=== PATIENT | female | born 1965 | race African-American/Black ===

== ENCOUNTER 2016-06-24 11:24 | Emergency (ER) | payer MEDICAID ==
[2016-06-24 12:01] VITALS: BP 125/69
[2016-06-24] MEDS ORDERED: Ondansetron 4 MG Tab.DIS PO ONE (12:09)
[2016-06-24] MEDS ORDERED: Ketorolac 60 MG/2 ML SDV IM ONE (13:40)
--- NOTE | 2016-06-24 14:31 | EDM.PDOC ---
ED HPI GI/ABDOMINAL - General Chief Complaint: Abdominal Pain Stated Complaint: ABDOMINAL PAIN Time Seen by Provider: 06/24/16 11:59 Source of Information: Reports: Patient, RN notes reviewed - History of Present Illness INITIAL COMMENTS - FREE TEXT/NARRATIVE: 51 year old female with nausea, intermitant abd pain and cramping for 2 days. Pain is generalized. no vomiting, diarrhea, fever or chills. Eating makes the pain worse. No prior abd surguries. - Related Data Allergies/ADRs: Allergies Allergy/AdvReac Type Severity Reaction Status Date / Time cephalexin monohydrate Allergy Hives Verified 06/24/16 11:56 [From Keflex] Home Meds: Home Meds Albuterol Sulfate [Proventil Hfa] 2 puff INH DAILY 04/08/16 [History] Azithromycin [IJD: Azithromycin] 250 mg PO DAILY #6 tab 04/08/16 [Rx] Furosemide 20 mg PO DAILY 04/08/16 [History] Hydrocodone/Acetaminophen [Hydrocodon-Acetaminophen 5-325] 1 tab PO Q6H PRN 12/15 [History] Omeprazole 20 mg PO BID 04/08/16 [History] Tolterodine [Detrol LA 24 Hr] 2 mg PO BID 04/08/16 [History] oxyCODONE HCl/Acetaminophen [Percocet 5-325 mg Tablet] 1 - 2 each PO Q4H PRN # 20 tablet 04/21/16 [Rx] Ondansetron [Zofran ODT] 4 mg PO Q6H #10 tab.dis 06/24/16 [Rx] Past Medical History HEENT History: Reports: Impaired vision Cardiovascular History: Reports: Arrhythmia Other Cardiovascular History: irregular HR Respiratory History: Reports: Asthma, Bronchitis, recurrent Gastrointestinal History: Reports: Hemorrhoids 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: Neurological History: Reports: Migraines Psychiatric History: Reports: Anxiety, Depression - Past Surgical History HEENT Surgical History: Reports: Adenoidectomy, Oral surgery Other HEENT Surgeries/Procedures: saliva gland removed Female Surgical History: Reports: section Other Musculoskeletal Surgeries/Procedures:: Jaw surgery Social & Family History - Tobacco Use Smoking Status *Q: Never Smoker Second Hand Smoke Exposure: No - Caffeine Use Caffeine Use: Reports: Coffee, Energy drinks, Tea - Recreational Drug Use Recreational Drug Use: No - Living Situation & Occupation Occupation: employed ED ROS GENERAL - Review of Systems Review Of Systems: See Below Constitutional: Denies: fever, chills, diaphoresis HEENT: Reports: No symptoms Respiratory: Denies: Shortness of Breath Cardiovascular: Denies: Chest pain GI/Abdominal: Reports: Abdominal pain, Nausea. Denies: Constipation, Diarrhea, Hematochezia, Melena, Vomiting Musculoskeletal: Denies: back pain Skin: Reports: no symptoms Neurological: Reports: No Symptoms ED EXAM, GI/ABD - Physical Exam Exam: See Below General Appearance: alert, mild distress Throat/Mouth: Normal inspection, Normal oropharynx Head: No: facial swelling Neck: supple, full range of motion Respiratory/Chest: lungs clear, normal breath sounds Cardiovascular: regular rate, rhythm GI/Abdominal: soft, tenderness (mild diffuse tenderness) Back Exam: No: CVA tenderness (L), CVA tenderness (R) Extremities: normal inspection, normal range of motion Neurological: alert, oriented, no motor/sensory deficits Skin Exam: Warm, Dry, Normal color Course - Vital Signs Last Recorded V/S: Last Vital Signs Temp 97.2 F 06/24/16 11:56 Pulse 69 06/24/16 11:56 Resp 18 06/24/16 11:56 BP 125/69 06/24/16 11:56 Pulse Ox 100 06/24/16 11:56 - Orders/Labs/Meds Labs: Laboratory Tests 06/24/16 06/24/16 06/24/16 Range/Units 12:35 12:51 12:51 WBC 4.11 (3.98-10.04) K/mm3 RBC 4.26 (3.98-5.22) M/mm3 Hgb 12.4 (11.2-15.7) gm/L Hct 39.8 (34.1-44.9) % MCV 93.4 (79.4-94.8) fl MCH 29.1 (25.6-32.2) pg MCHC 31.2 L (32.2-35.5) g/dl RDW Std Deviation 45.3 (36.4-46.3) fL Plt Count 257 (182-369) K/mm3 MPV 10.1 (9.4-12.3) fl Neut % (Auto) 46.0 (34.0-71.1) % Lymph % (Auto) 43.8 (19.3-51.7) % [place] % (Auto) 8.3 (4.7-12.5) % Eos % (Auto) 1.0 (0.7-5.8) Baso % (Auto) 0.7 (0.1-1.2) % Neut # (Auto) 1.89 (1.56-6.13) K/mm3 Lymph # (Auto) 1.80 (1.18-3.74) K/mm3 [place] # (Auto) 0.34 (0.24-0.36) K/mm3 Eos # (Auto) 0.04 (0.04-0.36) K/mm3 Baso # (Auto) 0.03 (0.01-0.08) K/mm3 Sodium 141 (136-145) mEq/L Potassium 3.7 (3.5-5.1) mEq/L Chloride 104 (98-107) mEq/L Carbon Dioxide 30 (21-32) mEq/L Anion Gap 10.7 (5-15) BUN 8 (7-18) mg/dL Creatinine 0.8 (0.55-1.02) mg/dL Est Cr Clr Drug Dosing 64.19 mL/min Estimated GFR (MDRD) > 60 (>60) mL/min BUN/Creatinine Ratio 10.0 L (14-18) Glucose 85 (74-106) mg/dL Calcium 9.0 (8.5-10.1) mg/dL Total Bilirubin 0.4 (0.2-1.0) mg/dL AST 12 L (15-37) U/L ALT 17 (14-59) U/L Alkaline Phosphatase 79 (46-116) U/L Total Protein 7.4 (6.4-8.2) g/dl Albumin 3.6 (3.4-5.0) g/dl Globulin 3.8 gm/dL Albumin/Globulin Ratio 1.0 (1-2) Urine Color Light yellow (Yellow) Urine Appearance Clear (Clear) Urine pH 7.0 (5.0-8.0) Ur Specific Bedias 1.020 (1.005-1.030) Urine Protein Negative (Negative) Urine Glucose (UA) Negative (Negative) Urine Ketones Negative (Negative) Urine Occult Blood Negative (Negative) Urine Nitrite Negative (Negative) Urine Bilirubin Negative (Negative) Urine Urobilinogen 0.2 (0.2-1.0) Ur Leukocyte Esterase Negative (Negative) Urine RBC 0-5 (0-5) /hpf Urine WBC 0-5 (0-5) /hpf Ur Squamous Epith Cells 5-10 H (0-5) /hpf Urine Bacteria Few (FEW) /hpf Urine Mucus Few (FEW) /hpf Meds: Medications Discontinued Medications Generic Name Dose Route Start Last Admin Trade Name Freq PRN Reason Stop Dose Admin Ketorolac Tromethamine 60 mg 06/24/16 13:40 06/24/16 13:56 Toradol IM 06/24/16 13:41 60 mg ONETIME ONE Administration Ondansetron HCl 4 mg 06/24/16 12:09 06/24/16 12:17 Zofran Odt PO 06/24/16 12:10 4 mg ONETIME ONE Administration - Re-Assessments/Exams Free Text/Narrative Re-Assessment/Exam: 06/25/16 13:59 labs came back nl, have given zofran ODT, torodol IM, discharge instr. as documented. Departure - Departure Time of Disposition: 14:29 Disposition: Home, Self-Care 01 Condition: fair Clinical Impression: Abdominal pain Qualifiers: Abdominal location: generalized Qualified Code(s): R10.84 - Generalized abdominal pain Prescriptions: Ondansetron [Zofran ODT] 4 mg PO Q6H #10 tab.dis Instructions: Abdominal Pain, Adult, [id number] Referrals: Genesis Jaquez, [employer] RECLAIMER [Primary Care Provider] - Forms: ED Department Discharge Additional Instructions: this appears to be a viral illness or possible adverse food reaction. Clear liquids only until tomorrow afternoon, continue zofran q 6 hr as needed for nausea or vomiting, probiotic twice daily for 5 to 7 days, follow up clinic if not getting back to normal within 2 to 3 days, return to ED if symptoms worsening, especially if pain localizing to right lower abd or right upper abd as discussed.
== END 2016-06-24 14:37 | disposition home or self-care (01) ==
LOC: JD.ED 11:24
DX: R10.84 Generalized abdominal pain (principal); J45.909 Unspecified asthma, uncomplicated; Z88.8 Allergy status to other drugs, medicaments and biological substances; Z79.899 Other long term (current) drug therapy
CPT/HCPCS: 36415; 80053; 81001; 85025; 96372; 99284; A9270; J1885; 99283

== ENCOUNTER 2016-08-27 11:14 | Emergency (ER) | payer MEDICAID ==
[2016-08-27 11:46] VITALS: BP 115/68
[2016-08-27] MEDS ORDERED: Ketorolac 60 MG/2 ML SDV IM ONE (12:14)
[2016-08-27] MEDS ORDERED: HYDROmorphone 1 MG/ML Syringe IM ONE (12:14)
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
== END 2016-08-27 13:15 | disposition home or self-care (01) ==
LOC: JD.ED 11:14
DX: M54.5 Low back pain (principal); J45.909 Unspecified asthma, uncomplicated; G43.909 Migraine, unspecified, not intractable, without status migrainosus; Z88.1 Allergy status to other antibiotic agents; Z79.899 Other long term (current) drug therapy; Z98.890 Other specified postprocedural states
CPT/HCPCS: 96372; 99283; J1170; J1885

== ENCOUNTER 2016-12-29 04:33 | Emergency (ER) | payer MEDICAID ==
[2016-12-29 04:45] VITALS: BP 136/96
[2016-12-29] MEDS ORDERED: Ondansetron 4 MG Tab.DIS PO ONE (05:12)
[2016-12-29] MEDS ORDERED: Acetaminophen/oxyCODONE 325-5 MG Tab PO ONE (05:12)
--- NOTE | 2016-12-29 05:16 | EDM.PDOC ---
<José Miguel Campuzano - Last Filed: 12/29/16 08:33> ED HPI GENERAL MEDICAL PROBLEM - General Chief Complaint: Abdominal Pain Stated Complaint: right arm numbness Time Seen by Provider: 12/29/16 05:11 - Related Data Allergies Allergy/AdvReac Type Severity Reaction Status Date / Time cephalexin monohydrate Allergy Hives Verified 12/29/16 04:48 [From Keflex] IV contrast Allergy Itching Uncoded 12/29/16 09:16 Home Meds: Home Meds Amoxicillin [Amoxil] 1,000 mg PO BID #24 cap 12/29/16 [Rx] Clarithromycin [Biaxin] 500 mg PO BID #24 tablet 12/29/16 [Rx] oxyCODONE HCl/Acetaminophen [Percocet 5-325 mg Tablet] 1 - 2 each PO Q4H PRN # 28 tablet 12/29/16 [Rx] Course - Vital Signs Last Recorded V/S: Last Vital Signs Temp 36.1 C 12/29/16 04:40 Pulse 76 12/29/16 04:40 Resp 16 12/29/16 04:40 BP 136/96 H 12/29/16 04:40 Pulse Ox 91 L 12/29/16 07:37 - Orders/Labs/Meds Labs: Laboratory Tests 12/29/16 12/29/16 12/29/16 Range/Units 05:28 05:28 05:28 WBC 4.49 (3.98-10.04) K/mm3 RBC 4.28 (3.98-5.22) M/mm3 Hgb 12.5 (11.2-15.7) gm/L Hct 40.2 (34.1-44.9) % MCV 93.9 (79.4-94.8) fl MCH 29.2 (25.6-32.2) pg MCHC 31.1 L (32.2-35.5) g/dl RDW Std Deviation 45.7 (36.4-46.3) fL Plt Count 229 (182-369) K/mm3 MPV 10.2 (9.4-12.3) fl Neutrophils % (Manual) 40 (40-60) % Band Neutrophils % 0 (0-10) % Lymphocytes % (Manual) 41 H (20-40) % Atypical Lymphs % 2 % Monocytes % (Manual) 13 H (2-10) % Eosinophils % (Manual) 4 (0.7-5.8) % Basophils % (Manual) 0 L (0.1-1.2) Platelet Estimate Adequate Plt Morphology Comment Normal RBC Morph Comment Normal Sodium 142 (136-145) mEq/L Potassium 3.3 L (3.5-5.1) mEq/L Chloride 104 (98-107) mEq/L Carbon Dioxide 27 (21-32) mEq/L Anion Gap 14.3 (5-15) BUN 10 (7-18) mg/dL Creatinine 0.7 (0.55-1.02) mg/dL Est Cr Clr Drug Dosing 73.36 mL/min Estimated GFR (MDRD) > 60 (>60) mL/min BUN/Creatinine Ratio 14.3 (14-18) Glucose 119 H (74-106) mg/dL Calcium 9.1 (8.5-10.1) mg/dL Total Bilirubin 0.4 (0.2-1.0) mg/dL AST 13 L (15-37) U/L ALT 14 (14-59) U/L Alkaline Phosphatase 74 (46-116) U/L C-Reactive Protein 3.7 H* (<1.0) mg/dL Total Protein 7.0 (6.4-8.2) g/dl Albumin 3.1 L (3.4-5.0) g/dl Globulin 3.9 gm/dL Albumin/Globulin Ratio 0.8 L (1-2) Lipase 106 (73-393) U/L H. pylori IgG Antibody Positive H (NEGATIVE) Meds: Medications Discontinued Medications Generic Name Dose Route Start Last Admin Trade Name Teofilo PRN Reason Stop Dose Admin Albuterol 2.5 mg 12/29/16 07:37 12/29/16 07:40 Proventil Neb Soln NEB 12/29/16 07:38 2.5 mg ONETIME ONE Administration Diatrizoate Meglum/Diatrizoate Sod 90 ml 12/29/16 06:57 12/29/16 07:15 Gastrografin 37% PO 12/29/16 06:58 90 ml ONETIME ONE Administration Diphenhydramine HCl 50 mg 12/29/16 07:20 12/29/16 07:23 Benadryl IVPUSH 12/29/16 07:21 50 mg ONETIME ONE Administration Sodium Chloride 1,000 mls @ 100 mls/hr 12/29/16 05:45 12/29/16 06:05 Normal Saline IV 100 mls/hr ASDIRECTED THEODORA Administration Iopamidol 125 ml 12/29/16 06:57 12/29/16 07:15 Isovue-300 (61%) IVPUSH 12/29/16 06:58 125 ml ONETIME ONE Administration Methylprednisolone Sodium Succinate 125 mg 12/29/16 06:07 12/29/16 06:33 Solu-Medrol IVPUSH 12/29/16 06:08 125 mg ONETIME ONE Administration Ondansetron HCl 4 mg 12/29/16 05:12 12/29/16 05:34 Zofran Odt PO 12/29/16 05:13 4 mg ONETIME ONE Administration Oxycodone/Acetaminophen 2 tab 12/29/16 05:12 12/29/16 05:34 Percocet 325-5 Mg PO 12/29/16 05:13 2 tab ONETIME ONE Administration Sodium Chloride 10 ml 12/29/16 06:57 12/29/16 07:16 Saline Flush FLUSH 12/29/16 06:58 10 ml ONETIME ONE Administration - Re-Assessments/Exams Free Text/Narrative Re-Assessment/Exam: 12/29/16 07:38 have assumed care of patient after change of shift. Is finished getting her abdominal CT. Did develop itchiness of skin and some scratchiness of her throat , feels short of breath. He is not broken out in any rash or hives. She has no throat or facial swelling. When I listen to her lungs I really do not hear any audible wheezing at this time. she has been given benadryl 50 mg IV, Solu- Medrol 125 mg IV. We are going to go ahead and do an albuterol neb at this time. Her sats did drop a short time down to the upper 80s but now at 97-99%. 12/29/16 08:33, resting comfortably, breathing comfortably. Has resolved, shortness of breath has resolved. Dr. Hough had a plan for discharge. We will discharge her home at this time. Departure - Departure Time of Disposition: 08:34 Disposition: Home, Self-Care 01 Clinical Impression: Carpal tunnel syndrome of right wrist, Sacroiliitis, Meralgia paresthetica, right lower limb, Helicobacter pylori gastritis (chronic gastritis) Abdominal pain Qualifiers: Abdominal location: generalized Qualified Code(s): R10.84 - Generalized abdominal pain Allergic reaction to contrast dye Qualifiers: Encounter type: initial encounter Qualified Code(s): T50.8X5A - Adverse effect of diagnostic agents, initial encounter - Discharge Information Prescriptions: Amoxicillin [Amoxil] 1,000 mg PO BID #24 cap Clarithromycin [Biaxin] 500 mg PO BID #24 tablet oxyCODONE HCl/Acetaminophen [Percocet 5-325 mg Tablet] 1 - 2 each PO Q4H PRN # 28 tablet PRN Reason: pain relief. Instructions: Nausea, Adult, Gastritis, Adult, [id number], Carpal Tunnel Syndrome, [id number], Abdominal Pain, Adult, [id number] Referrals: Genesis Jaquez [employer]LE[employer] FIN[employer]ER [Primary Care Provider] - Forms: ED Department Discharge Additional Instructions: evaluation the emergency room tonight in regards to persistent severe numbness tingling and burning sensation in the right hand and forearm that radiates up towards the shoulder. This is been going on for several months just happened to be much worse last night. Examination suggests that this is due to entrapment of the median nerve at the wrist called Carpal tunnel syndrome.since this is been going on for longer than 3 months it is suggested that you follow-up with Dr. Kaminski orthopedic surgeon at the other end of the hospital second floor.Please phone [phone] to arrange an appointment. He will test the nerve to see if it is entrapped right at the wrist where we expected to be. The treatment is surgical decompression which is a 10 minute surgery I will relieve the pain long-term. The pain in your right leg is more difficult to sort out. There is a combination of inflammation of the right sacroiliac joint or hip joint there is mild greater trochanteric bursitis over the greater trochanter or what he would call your hip bone. There is also a component of nerve root entrapment at the anterior aspect of the pelvis called meralgia paresthetica. This is causing numbness tingling and burning sensation in the front and lateral aspect of the leg and thigh. This is often doing to wear wearing pants that crossed across the nerve over the hips that compressed the nerve. Also when we sit sometimes the belly fat will compressed the nerve and cause it to act up. Might be treated by an injection of steroid over the nerve to relieve the inflammation. Third problem was chronic abdominal pain for greater than 2 months with associated weight loss. This is being investigated by way of lab tests and CT scan of the abdomen and pelvis.the lab tests reveal no problems with her liver or pancreas. It did identify however that you're positive for a bacterial infection of the stomach called Helicobacter pylori. You're controlling the stomach and it's unclear where it comes from. It's felt to be transmitted to different foods via flies. It's unclear how long you may have had this infection in your stomach. It tends to flare in the spring and fall. At any rate it is a bacterial infection and grows in the stomach and it causes about 94% of ulcers. It is treated with oral antibiotics and usually high-dose amoxicillin 1 g twice daily with Biaxin 500 mg twice daily and increasing your Prilosec( Omeprazole) to 20 mg in the morning and 20 mg at bedtime for the first month of treatment and then back to 1 tablet once daily at bedtime. The antibiotics will be required for 12 days to try and eradicate this infection.suggest taking your omeprazole twice daily morning and bedtime for 3 days before starting the antibiotics as the is a better success rate in eradicating this infection this way Medication is somewhat difficult to take it often will cause some nausea or metallic E taste in the muscles. It is very important however to try complete the therapy as this bacteria is very difficult to kill. Your stomach will usually start to feel better started to within about 6 days after you start the antibiotics. Normally we would place you on a short course of steroids and anti-inflammatories to reduce the pain and inflammation of carpal tunnel syndrome and right sacroiliitis and greater trochanteric bursitis in her right hip as well as provide some relief of neuralgia paresthetica. This is not martinez until we clear up their stomach problems as you may well have an ulcer developing in your duodenum which is the first part of the small bowel or in the stomach itself. These medications could produce worsening of an ulcer. I will therefore provide you with a prescription for pain pills such as you were given in the ED Percocet 5/25 milligram tablets to be used on an as-needed basis primarily at bedtime to help sleep and reduce severe pain as carpal tunnel syndrome is usually much worse at bedtime and often will prevent patients from ability to sleep. Once the stomach problems are cleared up and you completed her antibiotics then you may well benefit from a trial of steroids and anti-inflammatory medicine such as meloxicam 15 mg daily. Please follow-up with your personal physician in this regard if you do not have a personal physician suggest follow-up with or PA --Alisa Palma or Daily Owen. They can be reached at [phone]..you need to follow-up with one of these medical care providers after you have finished her antibiotics for H. pylori eradication. <Mehul Hough - Last Filed: 12/31/16 08:37> ED HPI GENERAL MEDICAL PROBLEM - General Source of Information: Reports: Patient History Limitations: Reports: No Limitations - History of Present Illness INITIAL COMMENTS - FREE TEXT/NARRATIVE: 51-year-old female presents to the ED with chief complaint of numbness and tingling in her right upper extremity. She is aware that his seems to start in her hand and radiating up her arm towards her shoulder. She thinks that all of her fingers are numb and tingly. She was unable to differentiate that the fifth finger did not seem to be involved. Been going on for couple months but getting much worse. It is disrupting her sleep. She recognizes she can hardly drive a car with the right hand because it goes numb and tingly. Similarly when she is holding onto her fall she is to change hands etc. There is no motor abnormality she can feed herself without issue. She can still work with her right hand and feels coordinated. She also has some numbness and tingling in her right anterior lateral thigh. This is worse with certain movements like sitting for any prolonged period of time. This suggests meralgia paresthetica. She does have chronic low back pain and right hip pain. Her other complaint is generalized severe abdominal pain for the last 2 months. She states it hurts everywhere in the abdomen particular a periumbilically. This is a constant pain worsened by eating and she feels she's lost weight because of inability eat over the last 2 months. There's been no nausea or vomiting. She reports that her bowel function is for the most part pretty normal. She does not use laxatives. She does not get heartburn or take antacids. She describes pain is constant boring and aching. There may be a small burning component to the pain. Onset: Other (symptoms of been going on in her right hand and arm for over 2 months and probably closer to 6 months. Abdominal pain is been present for a good 2 months.) Duration: Week(s):, Chronic Location: Reports: Abdomen, Upper Extremity, Right (right upper extremity starting in the hand radiating up towards the shoulder.) Quality: Reports: Ache, Burning, Throbbing, Other (right hand is numb tingly and burning discomfort.) Severity: Severe (no position is comfortable in the right hand.) Improves with: Reports: None Worsens with: Reports: None Context: Denies: Activity, Exercise, Lifting, Sick Contact, Trauma, Other Associated Symptoms: Denies: Chest Pain, Cough, cough w sputum, Diaphoresis, Fever/Chills, Headaches, Loss of Appetite, Malaise, Nausea/Vomiting, Rash, Seizure, Shortness of Breath, Syncope Treatments H[employer]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 (see below) (none.) Abdomen Pain Score (Numeric/FACES): 10 Past Medical History HEENT History: Reports: Impaired Vision Cardiovascular History: Reports: Arrhythmia Other Cardiovascular History: irregular HR Respiratory History: Reports: Asthma, Bronchitis, Recurrent Gastrointestinal History: Reports: GERD (does take omeprazole daily.), Hemorrhoids 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: Neurological History: Reports: Migraines Psychiatric History: Reports: Anxiety, Depression - Past Surgical History HEENT Surgical History: Reports: Adenoidectomy, Oral Surgery Female Surgical History: Reports: Section Other Musculoskeletal Surgeries/Procedures:: Jaw surgery Social & Family History - Family History Cardiac: Reports: Hypertension, Other (See Below) Other Cardiac Family History: cardiomegaly Oncologic: Reports: Other (See Below) Other Oncologic Family History: throat - Tobacco Use Smoking Status *Q: Never Smoker Second Hand Smoke Exposure: No - Caffeine Use Caffeine Use: Reports: Coffee, Soda - Recreational Drug Use Recreational Drug Use: No - Living Situation & Occupation 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 Denies: Fever, Chills, Malaise, Weakness Respiratory: Reports: No Symptoms Cardiovascular: Reports: No Symptoms Endocrine: Reports: No Symptoms GI/Abdominal: Reports: Abdominal Pain (generalized abdominal pain which she describes as constant perhaps made worse by eating.this is caused a decrease in food intake and weight loss over the last 2 months. She's not sure how much.). Denies: Black Stool, Bloody Stool, Difficulty Swallowing, Distension, Flatus, Hematemesis, Hematochezia, Melena, Mucous in Stool, Nausea, Stool Incontinence, Vomiting : Reports: No Symptoms Musculoskeletal: Reports: Neck Pain, Back Pain, Joint Pain (right hip pain.) Skin: Reports: No Symptoms Neurological: Reports: Paresthesia (right upper extremity and right leg in the anterior lateral position. 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 Apparently she developed sepsis due to this infection) Head: Normocephalic Neck: Tender Lateral, Other (previous right submandibular gland resection.). No : Lymphadenopathy (L), Lymphadenopathy (R), Tender Midline Respiratory/Chest: No Respiratory Distress, Lungs Clear, Normal Breath Sounds, No Accessory Muscle Use Cardiovascular: Normal Peripheral Pulses, Regular Rate, Rhythm, No Edema, No Gallop, No Murmur GI/Abdominal Exam: Normal Bowel Sounds, Soft, Non-Tender, No Organomegaly, No Distention, Other (abdominal girth limits ability to palpate solid organs.mildly tender on deep palpation in the distribution of the gallbladder but no true Lopez sign.). No: Guarding, Rigid, Rebound, Tender Back Exam: Normal Inspection, Decreased Range of Motion, Other (Ark tenderness on palpation of the right sacroiliac joint and the superior one half the joint. Mild pain on compression of the greater trochanteric bursa on the right side.) Extremities: Normal Inspection, Normal Range of Motion, Non-Tender, No Pedal Edema Neurological: Alert, Oriented, CN II-XII Intact, Normal Cognition, Normal Gait, Other (positive Tinel"s sign and Phalens test. Clinically has some degree of meralgia parasethetica Rt leg as well. partiall relieved by comprression of the pelvis while she is on her side. Has significant pain in the Rt SI joint and mild pain Rt greater trochanter as well contributing to pain Rt thigh. ) Psychiatric: Normal Affect Skin Exam: Warm, Dry, Intact, Normal Color, No Rash Course - Orders/Labs/Meds Labs: Laboratory Tests 12/29/16 12/29/16 12/29/16 Range/Units 05:28 05:28 05:28 WBC 4.49 (3.98-10.04) K/mm3 RBC 4.28 (3.98-5.22) M/mm3 Hgb 12.5 (11.2-15.7) gm/L Hct 40.2 (34.1-44.9) % MCV 93.9 (79.4-94.8) fl MCH 29.2 (25.6-32.2) pg MCHC 31.1 L (32.2-35.5) g/dl RDW Std Deviation 45.7 (36.4-46.3) fL Plt Count 229 (182-369) K/mm3 MPV 10.2 (9.4-12.3) fl Neutrophils % (Manual) 40 (40-60) % Band Neutrophils % 0 (0-10) % Lymphocytes % (Manual) 41 H (20-40) % Atypical Lymphs % 2 % Monocytes % (Manual) 13 H (2-10) % Eosinophils % (Manual) 4 (0.7-5.8) % Basophils % (Manual) 0 L (0.1-1.2) Platelet Estimate Adequate Plt Morphology Comment Normal RBC Morph Comment Normal Sodium 142 (136-145) mEq/L Potassium 3.3 L (3.5-5.1) mEq/L Chloride 104 (98-107) mEq/L Carbon Dioxide 27 (21-32) mEq/L Anion Gap 14.3 (5-15) BUN 10 (7-18) mg/dL Creatinine 0.7 (0.55-1.02) mg/dL Est Cr Clr Drug Dosing 73.36 mL/min Estimated GFR (MDRD) > 60 (>60) mL/min BUN/Creatinine Ratio 14.3 (14-18) Glucose 119 H (74-106) mg/dL Calcium 9.1 (8.5-10.1) mg/dL Total Bilirubin 0.4 (0.2-1.0) mg/dL AST 13 L (15-37) U/L ALT 14 (14-59) U/L Alkaline Phosphatase 74 (46-116) U/L C-Reactive Protein 3.7 H* (<1.0) mg/dL Total Protein 7.0 (6.4-8.2) g/dl Albumin 3.1 L (3.4-5.0) g/dl Globulin 3.9 gm/dL Albumin/Globulin Ratio 0.8 L (1-2) Lipase 106 (73-393) U/L H. pylori IgG Antibody Positive H (NEGATIVE) Meds: Medications Discontinued Medications Generic Name Dose Route Start Last Admin Trade Name Freq PRN Reason Stop Dose Admin Albuterol 2.5 mg 12/29/16 07:37 12/29/16 07:40 Proventil Neb Soln NEB 12/29/16 07:38 2.5 mg ONETIME ONE Administration Diatrizoate Meglum/Diatrizoate Sod 90 ml 12/29/16 06:57 12/29/16 07:15 Gastrografin 37% PO 12/29/16 06:58 90 ml ONETIME ONE Administration Diphenhydramine HCl 50 mg 12/29/16 07:20 12/29/16 07:23 Benadryl IVPUSH 12/29/16 07:21 50 mg ONETIME ONE Administration Sodium Chloride 1,000 mls @ 100 mls/hr 12/29/16 05:45 12/29/16 06:05 Normal Saline IV 100 mls/hr ASDIRECTED THEODORA Administration Iopamidol 125 ml 12/29/16 06:57 12/29/16 07:15 Isovue-300 (61%) IVPUSH 12/29/16 06:58 125 ml ONETIME ONE Administration Methylprednisolone Sodium Succinate 125 mg 12/29/16 06:07 12/29/16 06:33 Solu-Medrol IVPUSH 12/29/16 06:08 125 mg ONETIME ONE Administration Ondansetron HCl 4 mg 12/29/16 05:12 12/29/16 05:34 Zofran Odt PO 12/29/16 05:13 4 mg ONETIME ONE Administration Oxycodone/Acetaminophen 2 tab 12/29/16 05:12 12/29/16 05:34 Percocet 325-5 Mg PO 12/29/16 05:13 2 tab ONETIME ONE Administration Sodium Chloride 10 ml 12/29/16 06:57 12/29/16 07:16 Saline Flush FLUSH 12/29/16 06:58 10 ml ONETIME ONE Administration - Radiology Interpretation Free Text/Narrative:: 51-year-old female presents to the ED with right upper extremity numbness tingling and burning sensation for a couple of months just worse tonight unable to sleep. Examination and history are compatible with carpal tunnel syndrome that is gradually getting worse over series of months. She is a positive Tinel' s sign and positive Phalen's test. In her right leg there appears to be a component of meralgia paresthetica but it's complicated due to findings of marked sacroiliitis on the right superior half of her SI joint and some greater trochanteric bursitis as well. She may well have also arthritic changes in her hip as well. In regards to abdominal complaints there left very nonspecific. She states it just hurts in the abdomen all the time mostly in the midline periumbilical. Nothing she seems to make it worse or better. She states she can' t eat sometimes due to the severity of the pain. Pain does not seem to radiate through to her back. She reports bowels seem to work normally and she's never vomited due to the pain. The question is how far to assess her in this regard since the pain is chronic. She likely require CT of the abdomen with oral and IV contrast. This ability to rule out sinister pathology in the pancreas etc. Also tell us if she has significant gall stones or evidence of gallbladder disease. Plan routine labs will be collected. A give HER-2 Percocet tablets orally for pain relief. H. pylori will be part of her investigations. - Re-Assessments/Exams Free Text/Narrative Re-Assessment/Exam: 12/29/16 06:21labs are back and reveal a normal white count at 4.49. Hemoglobin is 12.5 platelets 229,000. Sodium is 142 potassium slightly low at 3.3 chloride 104 bicarbonate 27. CRP is elevated at 3.7. Lipase is 106 H. pylori is positive. This most likely is the cause of her current abdominal pain. She will require treatment of the H. pylori infection with antibiotics Biaxin and Amoxil and increase Prilosec to twice daily for the next month and then taken once daily at bedtime after that. I will therefore hold off on the use of steroids and/or anti-inflammatories that she would may benefit from for her carpal tunnel syndrome myalgia paresthetica and right sacroiliitis and right greater trochanteric bursitis. Case she has a peptic or duodenal ulcer. After couple of weeks she could certainly trial these medications. I will simply place her on Percocet tabs 07/31/24 to be taken primarily at bedtime to provide pain relief during the night and to aid sleep. Departure - Departure Condition: Fair
[2016-12-29] MEDS ORDERED: Sodium Chloride 0.9% 1,000 ML IV SCH (05:45)
[2016-12-29] MEDS ORDERED: methylPREDNISolone Sodium Succinate 125 MG/2 ML SDV IVPUSH ONE (06:07)
[2016-12-29] MEDS ORDERED: Diatrizoate Meglumine/Diatrizoate Sodium 37% 120 ML Bottle PO ONE (06:57)
[2016-12-29] MEDS ORDERED: Sodium Chloride 0.9% 10 ML Syringe FLUSH ONE (06:57)
[2016-12-29] MEDS ORDERED: Iopamidol 612 MG/ML 150 ML Bottle IVPUSH ONE (06:57)
[2016-12-29] MEDS ORDERED: diphenhydrAMINE 50 MG/ML SDV IVPUSH ONE (07:20)
[2016-12-29] MEDS ORDERED: Albuterol 0.083% 2.5 MG/3 ML Neb Soln NEB ONE (07:37)
--- NOTE | 2016-12-29 07:51 | CT ---
CT abdomen and pelvis Technique: Multiple axial sections were obtained from above the dome of the diaphragm inferiorly through the pubic symphysis. Intravenous and oral contrast was utilized. Delayed images were obtained through the bladder. Comparison: Previous CT abdomen and pelvis exam of 04/21/16. Findings: Small portion of the visualized lung bases are clear. Small 3-4 mm low density lesion is seen within the dome of the right lobe of the liver which is stable from prior CT exam and is most likely due to a minimal cyst. No additional abnormality is seen within the liver. Spleen appears within normal limits. Adrenal glands show no nodule. Gallbladder shows no calcified gallstones. Kidneys show symmetric contrast enhancement without hydronephrosis or mass. Aorta shows slight atherosclerotic calcification without aneurysmal dilatation. No retroperitoneal adenopathy is seen. Small amount of contrast is seen within the distal esophagus compatible with mild reflux. Appendix is seen which is normal. No bowel dilatation is seen. No bowel wall thickening is identified. No pelvic mass or adenopathy is identified. Delayed images shows contrast within the distal ureters and within the bladder. Bone window settings were reviewed which shows scattered degenerative endplate spurring throughout the spine. Degenerative apophyseal change is noted at L4-5 and L5-S1 with vacuum phenomena. Vacuum phenomena is identified within the sacroiliac joints. Mild degenerative sclerosis is seen within the sacroiliac joints. Impression: 1. Incidental findings as noted above. Nothing acute is appreciated on CT study of the abdomen and pelvis. No significant change is identified from prior CT exam. Diagnostic code #2
== END 2016-12-29 09:15 | disposition home or self-care (01) ==
LOC: JD.ED 04:33
DX: G56.01 Carpal tunnel syndrome, right upper limb (principal); G57.11 Meralgia paresthetica, right lower limb; M46.1 Sacroiliitis, not elsewhere classified; K29.50 Unspecified chronic gastritis without bleeding; B96.81 Helicobacter pylori [H. pylori] as the cause of diseases classified elsewhere; T50.8X5A Adverse effect of diagnostic agents, initial encounter; J45.909 Unspecified asthma, uncomplicated; K21.9 Gastro-esophageal reflux disease without esophagitis
CPT/HCPCS: 36415; 74177; 80053; 83690; 85025; 86140; 86677; 94640; 96361; 96374; 96375; 99284; A9270; J1200; J2930; J7040; J7050; Q9963; Q9967

== ENCOUNTER 2017-02-23 14:02 | Emergency (ER) | payer MEDICAID ==
[2017-02-23 14:31] VITALS: BP 119/79
--- NOTE | 2017-02-23 14:34 | EDM.PDOC ---
ED HPI GENERAL MEDICAL PROBLEM - General Chief Complaint: Upper Extremity Injury/Pain Stated Complaint: KNOT ON RIGHT ARM Time Seen by Provider: 02/23/17 14:30 - History of Present Illness INITIAL COMMENTS - FREE TEXT/NARRATIVE: 52-year-old female presents emergency room with a lump in her right arm. This lump has been present for a week or 2 or she just recently noticed it. Patient is also complaining of numbness in her right hand she has a known history of carpal tunnel and she wears a splint at night. She is not able to get her carpal tunnel fixed because they are waiting to get her stomach evaluated to see what is wrong with this. Patient states she is on all sorts of medications for multiple problems but does not know what they are. She has not tried anything to help with the discomfort in her upper arm. Right Upper Arm Pain Score (Numeric/FACES): 9 - Related Data Allergies Allergy/AdvReac Type Severity Reaction Status Date / Time cephalexin monohydrate Allergy Hives Verified 02/23/17 14:25 [From Keflex] IV contrast Allergy Itching Uncoded 02/23/17 14:25 Home Meds: Home Meds Clarithromycin [Biaxin] 500 mg PO BID #24 tablet 12/29/16 [Rx] Past Medical History HEENT History: Reports: Impaired Vision Cardiovascular History: Reports: Arrhythmia Other Cardiovascular History: irregular HR Respiratory History: Reports: Asthma, Bronchitis, Recurrent Gastrointestinal History: Reports: GERD (does take omeprazole daily.), Hemorrhoids 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: Neurological History: Reports: Migraines Psychiatric History: Reports: Anxiety, Depression - Past Surgical History HEENT Surgical History: Reports: Adenoidectomy, Oral Surgery Female Surgical History: Reports: Section Other Musculoskeletal Surgeries/Procedures:: Jaw surgery Social & Family History - Family History Cardiac: Reports: Hypertension, Other (See Below) Other Cardiac Family History: cardiomegaly Oncologic: Reports: Other (See Below) Other Oncologic Family History: throat - Tobacco Use Smoking Status *Q: Never Smoker Second Hand Smoke Exposure: No - Caffeine Use Caffeine Use: Reports: Coffee, Soda - Recreational Drug Use Recreational Drug Use: No - Living Situation & Occupation 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.) Review of Systems - Review of Systems Review Of Systems: See Below Constitutional: Reports: No Symptoms Respiratory: Reports: No Symptoms Cardiovascular: Reports: No Symptoms GI/Abdominal: Reports: Other (She has lots of stomach trouble) ED EXAM, GENERAL - Physical Exam Exam: See Below Exam Limited By: No Limitations General Appearance: Alert, No Apparent Distress Respiratory/Chest: No Respiratory Distress, Lungs Clear, Normal Breath Sounds Cardiovascular: Regular Rate, Rhythm, No Edema, No Murmur Extremities: Other (Examination of her right upper extremity shows inner proximal upper arm flexor surface she has a marble size 1-1/2 cm palpable lesion consistent with a lipoma this does not track with movement of the forearm. She has some discomfort around her wrist with a positive Phalen's and reverse Phalen's as well as a positive Tinel's with distal paresthesias.) Course - Vital Signs Last Recorded V/S: Last Vital Signs Temp 36.6 C 02/23/17 14:26 Pulse 72 02/23/17 14:26 Resp 18 02/23/17 14:26 BP 119/79 02/23/17 14:26 Pulse Ox 100 02/23/17 14:26 - Re-Assessments/Exams Free Text/Narrative Re-Assessment/Exam: 02/23/17 14:46 Explained to the patient that this is probably a lipoma in her upper arm this needs to be followed closely. She does indeed have carpal tunnel. Nonsteroidals might be beneficial but without knowing what she is being treated for and what meds she is on could cause some significant problems. It is recommended that she follow-up with her regular provider. Did consider imaging however plain films would be of limited value in evaluation of this suspected lipoma in her right upper extremity. Departure - Departure Time of Disposition: 14:47 Disposition: Home, Self-Care 01 Clinical Impression: Lipoma of right upper extremity, Right carpal tunnel syndrome - Discharge Information Referrals: Genesis Jaquez CAFETERIA COUNTER ATTENDANT [Primary Care Provider] - Forms: ED Department Discharge Additional Instructions: Return to emergency room with any questions problems or worsening symptoms. Follow up with her regular provider this next week. If you are not using Tylenol this can be tried to help with the discomfort.
== END 2017-02-23 15:07 | disposition home or self-care (01) ==
LOC: JD.ED 14:02
DX: G56.01 Carpal tunnel syndrome, right upper limb (principal); D17.21 Benign lipomatous neoplasm of skin and subcutaneous tissue of right arm; Z88.1 Allergy status to other antibiotic agents
CPT/HCPCS: 99282; 99283

== ENCOUNTER 2017-03-03 07:08 | Day surgery (SDC) | payer MEDICAID ==
[~2017-03-03 07:08] MED LIST: Lactated Ringers 1,000 ML IV SCH; Lidocaine 1%/Sod Bicarbonate in NS 8.4% 1 ML Syringe IV PRN; Sodium Chloride 0.9% 10 ML Syringe FLUSH PRN
--- NOTE | 2017-03-03 07:30 | PCM.PREANE ---
Preanesthetic Assessment - Anesthesia/Transfusion/Family Hx Anesthesia History: Prior Anesthesia Without Reaction Family History of Anesthesia Reaction: No Transfusion History: No Prior Transfusion(s) - Review of Systems General: No Symptoms Pulmonary: No Symptoms, Other (Asthma is controlled. No attacks in a long time. ) Cardiovascular: No Symptoms Gastrointestinal: Abdominal Pain Neurological: Other (numbness/tingling in her hands/fingers) Other: Reports: None - Physical Assessment NPO Status Date: 03/02/17 NPO Status Time: 21:00 Pulse: 78 O2 Sat by Pulse Oximetry: 100 Respiratory Rate: 16 Blood Pressure: 116/77 Temperature: 36.5 C Weight: 133.175 kg ASA Class: 3 Mental Status: Alert & Oriented x3 Airway Class: Mallampati = 2 Dentition: Reports: Missing Tooth/Teeth Thyro-Mental Finger Breadths: 3 Mouth Opening Finger Breadths: 3 ROM/Head Extension: Full Lungs: Clear to Auscultation, Normal Respiratory Effort Cardiovascular: Regular Rate, Regular Rhythm - Allergies Allergies/Adverse Reactions: Allergies Allergy/AdvReac Type Severity Reaction Status Date / Time amoxicillin Allergy Itching Verified 02/28/17 14:20 cephalexin monohydrate Allergy Hives Verified 02/23/17 14:25 [From Keflex] lactose Allergy Nausea and Verified 02/28/17 14:20 Vomiting IV contrast Allergy Itching Uncoded 02/23/17 14:25 - Acknowledgements Anesthesia Type Planned: MAC Pt an Appropriate Candidate for the Planned Anesthesia: Yes Alternatives and Risks of Anesthesia Discussed w Pt/Guardian: Yes Pt/Guardian Understands and Agrees with Anesthesia Plan: Yes PreAnesthesia Questionnaire HEENT History: Reports: Impaired Vision Cardiovascular History: Reports: Heart Murmur Other Cardiovascular History: irregular HR Respiratory History: Reports: Asthma, Sleep Apnea Gastrointestinal History: Reports: GERD (does take omeprazole daily.), Hemorrhoids 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: Reports: Other (See Below) Other Neuro History: chronic back pain Psychiatric History: Reports: Anxiety, Depression - Past Surgical History HEENT Surgical History: Reports: Other (See Below) Other HEENT Surgeries/Procedures: removal saliva gland, jaw surgery Female Surgical History: Reports: Section - SUBSTANCE USE Smoking Status *Q: Never Smoker Second Hand Smoke Exposure: No Recreational Drug Use History: No - HOME MEDS Home Medications: Home Meds Acetaminophen/HYDROcodone [[place] 325-5 MG] 1 tab PO ASDIRECTED PRN 02/28/17 [ History] Albuterol [Proventil HFA] 1 puff INH ASDIRECTED 02/28/17 [History] ClonazePAM [KlonoPIN] 1 mg PO DAILY 02/28/17 [History] DULoxetine [Cymbalta] 60 mg PO DAILY 02/28/17 [History] Dicyclomine HCl [Bentyl] 10 mg PO DAILY 02/28/17 [History] Fluticasone Propionate [Flonase] 1 puff NASBOTH ASDIRECTED 02/28/17 [History] Fluticasone/Salmeterol [Advair 250-50 Diskus] 1 puff INH ASDIRECTED 02/28/17 [ History] Furosemide [Lasix] 20 mg PO DAILY 02/28/17 [History] Gabapentin [Neurontin] 100 mg PO DAILY 02/28/17 [History] Lidocaine 5% [Lidoderm 5%] 1 patch TRDERM ASDIRECTED 02/28/17 [History] Orphenadrine [Norflex] 100 mg PO DAILY 02/28/17 [History] Oxybutynin 5 mg PO DAILY 02/28/17 [History] Pantoprazole Sodium [Protonix] 40 mg PO DAILY 02/28/17 [History] - CURRENT (IN HOUSE) MEDS Current Meds: Current Medications Lactated Ringer's (Ringers, Lactated) 1,000 mls @ 125 mls/hr IV ASDIRECTED THEODORA Stop: 03/03/17 18:00 Lidocaine/Sodium Bicarbonate (Buffered Lidocaine 1% In Ns 8.4%) 0.25 ml IV ONETIME PRN PRN Reason: Prior to IV Start Stop: 03/03/17 18:00 Sodium Chloride (Saline Flush) 10 ml FLUSH ASDIRECTED PRN PRN Reason: Keep Vein Open Stop: 03/03/17 18:00
[2017-03-03] MEDS ORDERED: Propofol 200 MG/20 ML SDV ONE ×3 (07:49→08:53)
[2017-03-03] MEDS ORDERED: Midazolam 1 MG/ML 2 ML SDV ONE (07:50)
[2017-03-03] MEDS ORDERED: fentaNYL 100 MCG/2 ML SDV ONE (07:51)
[2017-03-03] MEDS ORDERED: Lidocaine 1% 4 ML ONE (07:52)
[2017-03-03] MEDS ORDERED: Lactated Ringers 1,000 ML ONE (08:53)
--- NOTE | 2017-03-03 09:07 | PCM.OPNOTE ---
- General Post-Op/Procedure Note Date of Surgery/Procedure: 03/03/17 Operative Procedure(s): egd with bx and colonosocopy to ascendinging colon Pre Op Diagnosis: abdomnal pain with positive H. pylorii / change in bowel habits Post-Op Diagnosis: Same Anesthesia Technique: MAC Primary Surgeon: Gordo Sevilla EBL in mLs: 0 Complications: None Condition: Good
[2017-03-03 09:33] VITALS: BP 129/91
--- NOTE | 2017-03-04 08:04 | OR ---
DATE OF OPERATION: 03/03/2017 SURGEON: Gordo Sevilla MD PREOPERATIVE DIAGNOSIS: Abdominal pain with serum H. pylori positivity. POSTOPERATIVE DIAGNOSIS: Abdominal pain with serum H. pylori positivity. OPERATION PERFORMED: Esophagogastroduodenoscopy with biopsy. FINDINGS: Normal study. The second portion of the duodenum, duodenal bulb, pyloric channel, antrum, body, and cardia of the stomach was unremarkable. Hiatus was intact. GE junction located at 40 cm was free of any acute process and the rest of the esophagus viewed was normal. A biopsy of the antrum was done looking for H. pylori. ANESTHESIA: Done under IV sedation. DESCRIPTION OF PROCEDURE: The patient was taken to the endoscopy room, placed in a supine position, connected to monitoring equipment, given IV sedation, and placed in left lateral position. Bite block was inserted. Video Olympus gastroscope was placed in the posterior oropharynx, under direct vision, threaded past the cricopharyngeus down the esophagus, and into the stomach. The stomach was insufflated and the scope passed through the pylorus to the second portion of the duodenum, slowly withdrawn showing normal 2nd portion of the duodenum, duodenal bulb, pyloric channel. Antrum, body, and cardia of the stomach and fundus were viewed and were normal. J-maneuver was performed showing an intact hiatus. Biopsy of the antrum was performed. The scope was withdrawn in the GE junction which was normal and located at 40 cm. The rest of the esophagus was viewed. The scope withdrawn was normal. The patient tolerated the procedure and IV sedation, continued for colonoscopy and the specimen sent to pathology in a labeled container. ESTIMATED BLOOD LOSS: MMODAL /[id number]
--- NOTE | 2017-03-04 08:04 | OR ---
DATE OF OPERATION: 03/03/2017 SURGEON: Gordo Sevilla MD PREOPERATIVE DIAGNOSIS: Change in bowel habits. POSTOPERATIVE DIAGNOSIS: Change in bowel habits. OPERATION PERFORMED: Colonoscopy to the ascending colon done under IV sedation with collection of specimen for analysis of stool. FINDINGS: There are no angiodysplasias, neoplasias, large tumor masses, or ulcerations or diverticulum. The prep was poor and that there was fecal matter that could not be aspirated from the cecum, thus preventing evaluation of the cecum. The rest of the prep was excellent. ANESTHESIA: IV sedation. DESCRIPTION OF PROCEDURE: The patient having been connected to monitoring equipment and given IV sedation for upper GI endoscopy, this was continued for the colonoscopy. She was placed in the left lateral position. Perianal area was inspected and was normal. Rectal exam showed good sphincter tone. A video Olympus colonoscope was then introduced into the rectum and threaded up without problem to the ascending colon where fecal matter was encountered and with particulate thick enough that it could not be aspirated nor could the scope be advanced around this area. It was in the ascending colon just above the cecum, filled most of the cecum. The cecum could not be seen. The rest of the prep was excellent. The scope was slowly withdrawn showing the portion of the ascending colon, transverse colon, descending colon, sigmoid colon, and rectum. Retroflexed view was done. The patient tolerated the procedure, sent to recovery room in a stable condition, and will be followed up in the clinic. ESTIMATED BLOOD LOSS: MMODAL /[id number]
== END 2017-03-03 10:08 | disposition home or self-care (01) ==
LOC: JD.SDS 07:08
PROVIDERS: ATTEND Surgery
DX: R19.4 Change in bowel habit (principal); G47.33 Obstructive sleep apnea (adult) (pediatric); E66.01 Morbid (severe) obesity due to excess calories; Z68.43 Body mass index [BMI] 50.0-59.9, adult; J45.909 Unspecified asthma, uncomplicated; Z79.899 Other long term (current) drug therapy; Z88.1 Allergy status to other antibiotic agents; Z91.041 Radiographic dye allergy status; Z91.011 Allergy to milk products
CPT/HCPCS: 45378; 87046; 87328; 87329; 87493; 89055; J2250; J3010; J7120; 00810; 87427; J2704

== ENCOUNTER 2017-10-16 09:50 | Emergency (ER) | payer MEDICAID ==
[2017-10-16 10:05] VITALS: BP 126/82
--- NOTE | 2017-10-16 10:36 | EDM.PDOC ---
ED HPI GENERAL MEDICAL PROBLEM - General Chief Complaint: Lower Extremity Injury/Pain Stated Complaint: FEET PAIN/POST SURGICAL PAIN Time Seen by Provider: 10/16/17 10:11 Source of Information: Reports: Patient History Limitations: Reports: No Limitations - History of Present Illness INITIAL COMMENTS - FREE TEXT/NARRATIVE: The patient presents with a lesion to her right foot. She had an area with a black dot and she had a surgeon remove it 09/18. There was sutures in it and it broke open and now there is pain and redness and swelling. She has no fever, chills, or cough. She has no chest pain, shortness of breath, abdominal pain, nausea and vomiting. She does not have diabetes. Onset: Gradual Duration: Week(s): Location: Reports: Lower Extremity, Right (foot) Quality: Reports: Sharp Severity: Severe (at times) Improves with: Reports: None Worsens with: Reports: None Associated Symptoms: Reports: No Other Symptoms Right Feet Pain Score (Numeric/FACES): 10 - Related Data Allergies Allergy/AdvReac Type Severity Reaction Status Date / Time amoxicillin Allergy Itching Verified 10/16/17 10:05 cephalexin monohydrate Allergy Hives Verified 10/16/17 10:05 [From Keflex] lactose AdvReac Nausea and Verified 10/16/17 10:05 Vomiting IV contrast Allergy Itching Uncoded 10/16/17 10:05 Home Meds: Home Meds Acetaminophen/HYDROcodone [[place] 325-5 MG] 1 tab PO ASDIRECTED PRN 02/28/17 [ History] Albuterol [Proventil HFA] 1 puff INH ASDIRECTED 02/28/17 [History] ClonazePAM [KlonoPIN] 1 mg PO DAILY 02/28/17 [History] DULoxetine [Cymbalta] 60 mg PO DAILY 02/28/17 [History] Dicyclomine HCl [Bentyl] 10 mg PO DAILY 02/28/17 [History] Fluticasone/Salmeterol [Advair 250-50 Diskus] 1 puff INH ASDIRECTED 02/28/17 [ History] Furosemide [Lasix] 20 mg PO DAILY 02/28/17 [History] Gabapentin [Neurontin] 100 mg PO DAILY 02/28/17 [History] Lidocaine 5% [Lidoderm 5%] 1 patch TRDERM ASDIRECTED 02/28/17 [History] Orphenadrine [Norflex] 100 mg PO DAILY 02/28/17 [History] Oxybutynin 5 mg PO DAILY 02/28/17 [History] Pantoprazole Sodium [Protonix] 40 mg PO DAILY 02/28/17 [History] Doxycycline [Vibramycin] 100 mg PO BID #20 cap 10/16/17 [Rx] oxyCODONE HCl/Acetaminophen [Percocet 5-325 mg Tablet] 1 - 2 each PO Q6HR PRN # 20 tablet 10/16/17 [Rx] Past Medical History HEENT History: Reports: Impaired Vision Cardiovascular History: Reports: Heart Murmur Other Cardiovascular History: irregular HR Respiratory History: Reports: Asthma, Sleep Apnea Gastrointestinal History: Reports: GERD, Hemorrhoids 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: Reports: Other (See Below) Other Neuro History: chronic back pain Psychiatric History: Reports: Anxiety, Depression - Past Surgical History HEENT Surgical History: Reports: Other (See Below) Other HEENT Surgeries/Procedures: removal saliva gland, jaw surgery Female Surgical History: Reports: Section Other Musculoskeletal Surgeries/Procedures:: Jaw surgery Social & Family History - Family History Family Medical History: Noncontributory Cardiac: Reports: Hypertension, Other (See Below) Other Cardiac Family History: cardiomegaly Oncologic: Reports: Other (See Below) Other Oncologic Family History: throat - Tobacco Use Smoking Status *Q: Never Smoker - Caffeine Use Caffeine Use: Reports: Coffee, Soda - Recreational Drug Use Recreational Drug Use: No - Living Situation & Occupation 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.) Review of Systems - Review of Systems Review Of Systems: See Below Constitutional: Reports: No Symptoms Eyes: Reports: No Symptoms Ears: Reports: No Symptoms Nose: Reports: No Symptoms Mouth/Throat: Reports: No Symptoms Respiratory: Reports: No Symptoms Cardiovascular: Reports: No Symptoms GI/Abdominal: Reports: No Symptoms Genitourinary: Reports: No Symptoms Musculoskeletal: Reports: Other (Right foot pain and lesions) ED EXAM, GENERAL - Physical Exam Exam: See Below Exam Limited By: No Limitations General Appearance: Alert, No Apparent Distress Ears: Normal External Exam Nose: Normal Inspection Throat/Mouth: Normal Inspection Head: Atraumatic, Normocephalic Neck: Normal Inspection Respiratory/Chest: No Respiratory Distress Extremities: Other (1.5 cm ulcer to the front of her foot) Course - Vital Signs Last Recorded V/S: Last Vital Signs Temp 97.7 F 10/16/17 10:03 Pulse 68 10/16/17 10:03 Resp 19 10/16/17 10:03 BP 126/82 10/16/17 10:03 Pulse Ox 97 10/16/17 10:03 Departure - Departure Time of Disposition: 10:40 Disposition: Home, Self-Care 01 Condition: Good Clinical Impression: Foot ulcer, right Qualifiers: Non-pressure ulcer stage: limited to breakdown of skin Qualified Code(s): L97.511 - Non-pressure chronic ulcer of other part of right foot limited to breakdown of skin - Discharge Information *PRESCRIPTION DRUG MONITORING PROGRAM REVIEWED*: Not Applicable *COPY OF PRESCRIPTION DRUG MONITORING REPORT IN PATIENT ERNESTO: Not Applicable Prescriptions: oxyCODONE HCl/Acetaminophen [Percocet 5-325 mg Tablet] 1 - 2 each PO Q6HR PRN # 20 tablet PRN Reason: Pain Doxycycline [Vibramycin] 100 mg PO BID #20 cap Referrals: Genesis Jaquez, AIRFIELD MANAGER [Primary Care Provider] - 1 Week Additional Instructions: Soak your foot in warm soapy water 2 times per day and apply antibiotic ointment after for 5 days. Then leave it open to air and keep dry. Take the doxycycline 2 times per day for 10 days. Please return if you are worse.
== END 2017-10-16 10:48 | disposition home or self-care (01) ==
LOC: JD.ED 09:50
DX: L97.511 Non-pressure chronic ulcer of other part of right foot limited to breakdown of skin (principal); J45.909 Unspecified asthma, uncomplicated; K21.9 Gastro-esophageal reflux disease without esophagitis; F41.9 Anxiety disorder, unspecified; F32.9 Major depressive disorder, single episode, unspecified; Z79.899 Other long term (current) drug therapy; Z88.1 Allergy status to other antibiotic agents; Z91.011 Allergy to milk products; Z91.041 Radiographic dye allergy status
CPT/HCPCS: 99283

== ENCOUNTER 2017-12-31 11:51 | Emergency (ER) | payer MEDICAID ==
[2017-12-31] MEDS ORDERED: methylPREDNISolone Sodium Succinate 125 MG/2 ML SDV IVPUSH ONE (12:21)
[2017-12-31] MEDS ORDERED: Albuterol/Ipratropium 3.0-0.5 MG/3 ML Neb Soln NEB ONE (12:21)
--- NOTE | 2017-12-31 12:25 | EDM.PDOC ---
ED HPI GENERAL MEDICAL PROBLEM - General Chief Complaint: Respiratory Problem Stated Complaint: SOB Time Seen by Provider: 12/31/17 12:15 - History of Present Illness INITIAL COMMENTS - FREE TEXT/NARRATIVE: Patient is 52-year-old female accompanied by family, presented today to the emergency department for evaluation of midsternal chest tightness. She stated that she has history of asthma and has been having shortness of breath which further caused her chest tightness today which is intermittent in nature. Currently she rated her discomfort level about 5 or 6 on a scale of 0-10. Chest discomfort has no radiation. She denies any associated symptoms of nausea, vomiting, fever, chills, headache, arm pain, back pain, dizziness, abdominal pain. She has been using her inhaler however today she has having shortness of breath despite using an inhaler. She denies any other medication use to alleviate symptoms prior to arrival today. She denies any recent traveling, no known sick contacts. Denies any other concern at this time. 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: inhaler Chest Pain Score (Numeric/FACES): 7 - Related Data Allergies Allergy/AdvReac Type Severity Reaction Status Date / Time amoxicillin Allergy Itching Verified 10/16/17 10:05 cephalexin monohydrate Allergy Hives Verified 10/16/17 10:05 [From Keflex] lactose AdvReac Nausea and Verified 10/16/17 10:05 Vomiting IV contrast Allergy Itching Uncoded 10/16/17 10:05 Home Meds: Home Meds Acetaminophen/HYDROcodone [[place] 325-5 MG] 1 tab PO ASDIRECTED PRN 02/28/17 [ History] Albuterol [Proventil HFA] 1 puff INH ASDIRECTED 02/28/17 [History] ClonazePAM [KlonoPIN] 1 mg PO DAILY 02/28/17 [History] DULoxetine [Cymbalta] 60 mg PO DAILY 02/28/17 [History] Dicyclomine HCl [Bentyl] 10 mg PO DAILY 02/28/17 [History] Fluticasone/Salmeterol [Advair 250-50 Diskus] 1 puff INH ASDIRECTED 02/28/17 [ History] Furosemide [Lasix] 20 mg PO DAILY 02/28/17 [History] Gabapentin [Neurontin] 100 mg PO DAILY 02/28/17 [History] Lidocaine 5% [Lidoderm 5%] 1 patch TRDERM ASDIRECTED 02/28/17 [History] Orphenadrine [Norflex] 100 mg PO DAILY 02/28/17 [History] Oxybutynin 5 mg PO DAILY 02/28/17 [History] Pantoprazole Sodium [Protonix] 40 mg PO DAILY 02/28/17 [History] Doxycycline [Vibramycin] 100 mg PO BID #20 cap 10/16/17 [Rx] oxyCODONE HCl/Acetaminophen [Percocet 5-325 mg Tablet] 1 - 2 each PO Q6HR PRN # 20 tablet 10/16/17 [Rx] Albuterol [Ventolin HFA] 8 gm INH Q6HR PRN #1 inhaler 12/31/17 [Rx] predniSONE [Prednisone] 20 mg PO DAILY 5 Days #5 tablet 12/31/17 [Rx] Past Medical History HEENT History: Reports: Impaired Vision Cardiovascular History: Reports: Heart Murmur Other Cardiovascular History: irregular HR Respiratory History: Reports: Asthma, Sleep Apnea Gastrointestinal History: Reports: GERD, Hemorrhoids 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: Neurological History: Reports: Other (See Below) Other Neuro History: chronic back pain Psychiatric History: Reports: Anxiety, Depression - Past Surgical History HEENT Surgical History: Reports: Other (See Below) Other HEENT Surgeries/Procedures: removal saliva gland, jaw surgery Female Surgical History: Reports: Section Other Musculoskeletal Surgeries/Procedures:: Jaw surgery Social & Family History - Family History Family Medical History: Noncontributory Cardiac: Reports: Hypertension, Other (See Below) Other Cardiac Family History: cardiomegaly Oncologic: Reports: Other (See Below) Other Oncologic Family History: throat - Tobacco Use Smoking Status *Q: Never Smoker - Caffeine Use Caffeine Use: Reports: Coffee, Energy Drinks, Soda, Tea - Recreational Drug Use Recreational Drug Use: No - Living Situation & Occupation 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 ED EXAM, GENERAL - Physical Exam Exam: See Below Exam Limited By: No Limitations General Appearance: Alert, Mild Distress Ears: Normal External Exam, Normal Canal, Hearing Grossly Normal, Normal TMs Ear Exam: Bilateral Ear: Auricle Normal, Canal Normal, TM normal Nose: Normal Inspection, Normal Mucosa, No Blood Throat/Mouth: Normal Inspection, Normal Lips, Normal Teeth, Normal Gums, Normal Oropharynx, Normal Voice, No Airway Compromise Head: Atraumatic, Normocephalic Neck: Normal Inspection, Supple, Non-Tender, Full Range of Motion Respiratory/Chest: Lungs Clear, Normal Breath Sounds, No Accessory Muscle Use, Chest Non-Tender, Respiratory Distress (Mild respiratory distress), Wheezing Cardiovascular: Normal Peripheral Pulses, Regular Rate, Rhythm, No Murmur GI/Abdominal: Normal Bowel Sounds, Soft Extremities: Normal Inspection, Normal Range of Motion, Non-Tender, Normal Capillary Refill, No Pedal Edema Neurological: Alert, Oriented Psychiatric: Normal Affect, Normal Mood Skin Exam: Warm, Dry, Intact, Normal Color, No Rash Course - Vital Signs Last Recorded V/S: Last Vital Signs Temp 36.1 C 12/31/17 14:35 Pulse 72 12/31/17 14:35 Resp 18 12/31/17 14:35 BP 111/64 12/31/17 14:35 Pulse Ox 97 12/31/17 14:35 - Orders/Labs/Meds Orders: Active Orders 24 hr Category Date Time Status EKG Documentation Completion [RC] ASDIRECTED Care 12/31/17 12:12 Active RT Aerosol Therapy [RC] ASDIRECTED Care 12/31/17 12:21 Active Chest 2V [CR] Stat Exams 12/31/17 12:20 Taken EKG 12 Lead [EK] Stat Ther 12/31/17 12:11 Ordered Labs: Laboratory Tests 12/31/17 12/31/17 12/31/17 Range/Units 12:31 13:34 13:34 WBC 5.32 (3.98-10.04) K/mm3 RBC 4.36 (3.98-5.22) M/mm3 Hgb 13.0 (11.2-15.7) gm/L Hct 41.4 (34.1-44.9) % MCV 95.0 H (79.4-94.8) fl MCH 29.8 (25.6-32.2) pg MCHC 31.4 L (32.2-35.5) g/dl RDW Std Deviation 45.0 (36.4-46.3) fL Plt Count 241 (182-369) K/mm3 MPV 10.1 (9.4-12.3) fl Neut % (Auto) 44.6 (34.0-71.1) % Lymph % (Auto) 43.8 (19.3-51.7) % Boyle % (Auto) 10.3 (4.7-12.5) % Eos % (Auto) 0.9 (0.7-5.8) Baso % (Auto) 0.4 (0.1-1.2) % Neut # (Auto) 2.37 (1.56-6.13) K/mm3 Lymph # (Auto) 2.33 (1.18-3.74) K/mm3 Boyle # (Auto) 0.55 H (0.24-0.36) K/mm3 Eos # (Auto) 0.05 (0.04-0.36) K/mm3 Baso # (Auto) 0.02 (0.01-0.08) K/mm3 D-Dimer, Quantitative 0.37 (0.19-0.50) mg/L Puncture Site Lt radial ABG pH 7.39 (7.35-7.45) ABG pCO2 44.5 (35.0-45.0) mmHg ABG pO2 93.0 (80.0-100.0) mmHg ABG HCO3 26.6 H (22.0-26.0) meq/L ABG O2 Saturation 97.2 H (96.0-97.0) % ABG Base Excess 1.9 (-2-2.0) Kashif Test Positive O2 Delivery Device Room air FiO2 21.00 (21.00-100.00) % Sodium (136-145) mEq/L Potassium (3.5-5.1) mEq/L Chloride (98-107) mEq/L Carbon Dioxide (21-32) mEq/L Anion Gap (5-15) BUN (7-18) mg/dL Creatinine (0.55-1.02) mg/dL Est Cr Clr Drug Dosing mL/min Estimated GFR (MDRD) (>60) mL/min BUN/Creatinine Ratio (14-18) Glucose (74-106) mg/dL Calcium (8.5-10.1) mg/dL Magnesium (1.8-2.4) mg/dl Total Bilirubin (0.2-1.0) mg/dL AST (15-37) U/L ALT (14-59) U/L Alkaline Phosphatase (46-116) U/L CK-MB (CK-2) (0-3.6) ng/ml Troponin I (0.00-0.056) ng/mL NT-Pro-B Natriuret Pep (0-125) pg/mL Total Protein (6.4-8.2) g/dl Albumin (3.4-5.0) g/dl Globulin gm/dL Albumin/Globulin Ratio (1-2) 12/31/17 12/31/17 Range/Units 13:34 13:34 WBC (3.98-10.04) K/mm3 RBC (3.98-5.22) M/mm3 Hgb (11.2-15.7) gm/L Hct (34.1-44.9) % MCV (79.4-94.8) fl MCH (25.6-32.2) pg MCHC (32.2-35.5) g/dl RDW Std Deviation (36.4-46.3) fL Plt Count (182-369) K/mm3 MPV (9.4-12.3) fl Neut % (Auto) (34.0-71.1) % Lymph % (Auto) (19.3-51.7) % Boyle % (Auto) (4.7-12.5) % Eos % (Auto) (0.7-5.8) Baso % (Auto) (0.1-1.2) % Neut # (Auto) (1.56-6.13) K/mm3 Lymph # (Auto) (1.18-3.74) K/mm3 Boyle # (Auto) (0.24-0.36) K/mm3 Eos # (Auto) (0.04-0.36) K/mm3 Baso # (Auto) (0.01-0.08) K/mm3 D-Dimer, Quantitative (0.19-0.50) mg/L Puncture Site ABG pH (7.35-7.45) ABG pCO2 (35.0-45.0) mmHg ABG pO2 (80.0-100.0) mmHg ABG HCO3 (22.0-26.0) meq/L ABG O2 Saturation (96.0-97.0) % ABG Base Excess (-2-2.0) Kashif Test O2 Delivery Device FiO2 (21.00-100.00) % Sodium 137 (136-145) mEq/L Potassium 3.9 (3.5-5.1) mEq/L Chloride 101 (98-107) mEq/L Carbon Dioxide 30 (21-32) mEq/L Anion Gap 9.9 (5-15) BUN 11 (7-18) mg/dL Creatinine 0.9 (0.55-1.02) mg/dL Est Cr Clr Drug Dosing 56.43 mL/min Estimated GFR (MDRD) > 60 (>60) mL/min BUN/Creatinine Ratio 12.2 L (14-18) Glucose 107 H (74-106) mg/dL Calcium 9.0 (8.5-10.1) mg/dL Magnesium 2.0 (1.8-2.4) mg/dl Total Bilirubin 0.3 (0.2-1.0) mg/dL AST 14 L (15-37) U/L ALT 17 (14-59) U/L Alkaline Phosphatase 103 (46-116) U/L CK-MB (CK-2) 0.6 (0-3.6) ng/ml Troponin I < 0.017 (0.00-0.056) ng/mL NT-Pro-B Natriuret Pep 18 (0-125) pg/mL Total Protein 7.4 (6.4-8.2) g/dl Albumin 3.4 (3.4-5.0) g/dl Globulin 4.0 gm/dL Albumin/Globulin Ratio 0.9 L (1-2) Meds: Medications Discontinued Medications Generic Name Dose Route Start Last Admin Trade Name Freq PRN Reason Stop Dose Admin Albuterol/Ipratropium 3 ml 12/31/17 12:21 12/31/17 12:46 Duoneb 3.0-0.5 Mg/3 Ml NEB 12/31/17 12:22 3 ml ONETIME ONE Administration Methylprednisolone Sodium Succinate 125 mg 12/31/17 12:21 12/31/17 12:58 Solu-Medrol IVPUSH 12/31/17 12:22 125 mg ONETIME ONE Administration - Re-Assessments/Exams Free Text/Narrative Re-Assessment/Exam: 12/31/17 14:00. At this time patient was reevaluated at bedside. Lung sounds clear to auscultation bilaterally. Patient stated that she is feeling much better after the use of DuoNeb treatment. She denies any chest tightness or any shortness of breath at this time. Departure - Departure Time of Disposition: 14:28 Disposition: Home, Self-Care 01 Condition: Good Clinical Impression: Asthma exacerbation Qualifiers: Asthma severity: moderate - Discharge Information Prescriptions: Albuterol [Ventolin HFA] 8 gm INH Q6HR PRN #1 inhaler PRN Reason: Wheezing predniSONE [Prednisone] 20 mg PO DAILY 5 Days #5 tablet Instructions: Asthma, Adult, Shortness of Breath, Adult, [id number] Referrals: PCP,None [Primary Care Provider] - 2 Days (Please establish primary care provider and follow up with your choice of PCP within 2-3 days for reevaluation of today emergency visit.) Forms: ED Department Discharge - My Orders Last 24 Hours: My Active Orders 12/31/17 12:11 EKG 12 Lead [EK] Stat 12/31/17 12:12 EKG Documentation Completion [RC] ASDIRECTED 12/31/17 12:20 Chest 2V [CR] Stat 12/31/17 12:21 RT Aerosol Therapy [RC] ASDIRECTED - Assessment/Plan Last 24 Hours: My Active Orders 12/31/17 12:11 EKG 12 Lead [EK] Stat 12/31/17 12:12 EKG Documentation Completion [RC] ASDIRECTED 12/31/17 12:20 Chest 2V [CR] Stat 12/31/17 12:21 RT Aerosol Therapy [RC] ASDIRECTED
[2017-12-31 14:42] VITALS: BP 111/64
--- NOTE | 2018-01-02 09:34 | CR ---
Chest: Two views of the chest were obtained. Comparison: Prior chest x-ray of 04/08/16. Heart size and mediastinum are within normal limits. Lungs are clear. Degenerative endplate spurring is noted within the spine. Minimal scoliosis is noted. Impression: 1. Incidental findings. Nothing acute is seen on two-view chest x-ray. Diagnostic code #2
== END 2017-12-31 14:35 | disposition home or self-care (01) ==
LOC: JD.ED 11:51
DX: J45.901 Unspecified asthma with (acute) exacerbation (principal); Z88.1 Allergy status to other antibiotic agents; Z79.899 Other long term (current) drug therapy; Z91.041 Radiographic dye allergy status
CPT/HCPCS: 36415; 36600; 71046; 80053; 82553; 82803; 83735; 83880; 84484; 85025; 85379; 93005; 94640; 96374; 99285; J2930; 93010; 99284-25; J7620-GY

== ENCOUNTER 2018-04-03 16:44 | Emergency (ER) | payer MEDICAID ==
[2018-04-03 16:55] VITALS: BP 125/86
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
[2018-04-03] MEDS ORDERED: fentaNYL 100 MCG/2 ML SDV IM ONE (17:49)
[2018-04-03] MEDS ORDERED: LORazepam 2 MG/ML SDV IM ONE (17:51)
--- NOTE | 2018-04-03 18:59 | CT ---
CT chest Technique: Multiple axial sections were obtained from above the lung apices inferiorly through the lung bases. Intravenous contrast not utilized as patient gave a history of previous allergy. Comparison: Prior CT chest of 04/21/16. Findings: Slight atherosclerotic calcification is noted within the aorta. Aorta shows no aneurysm. No mediastinal or hilar adenopathy is seen. No axillary adenopathy is seen. No pericardial effusion is seen. Lungs are clear without acute parenchymal change. No pneumothorax is seen. No pleural effusions are identified. Bone window settings were reviewed which shows no discrete rib fracture. Thoracic spines shows scattered degenerative change with disc space narrowing and osteophytes. No compression deformities or discrete fracture is seen on this exam. Reconstructed sagittal views of the sternum appear intact. Impression: 1. Nothing acute is seen on noncontrast CT study of the chest. Diagnostic code #2 CT abdomen and pelvis Technique: Multiple axial sections were obtained from above the dome of the diaphragm inferiorly through the pubic symphysis. Intravenous and oral contrast not utilized. Intravenous contrast not utilized due to patient history of allergy. Comparison: Previous CT abdomen and pelvis exam of 12/29/16. Findings: Liver shows no focal parenchymal abnormality. Spleen appears within normal limits. Adrenal glands show no nodule. Pancreas is within normal limits. Kidneys show no abnormal calcifications or hydronephrosis. Aorta shows mild atherosclerotic calcification without aneurysm. No retroperitoneal adenopathy is seen. Appendix is seen and is normal in size. No pelvic mass or adenopathy is seen. No free fluid or inflammatory change is seen within the abdomen or within the pelvis. Bone window settings were reviewed which shows scattered degenerative change within the spine. Nothing acute is appreciated. Impression: 1. Nothing acute is appreciated on noncontrast CT study of the abdomen and pelvis. Incidental findings as noted above. Diagnostic code #2
--- NOTE | 2018-04-03 19:05 | CT ---
Head CT Technique: Multiple axial sections through the brain were obtained. Intravenous contrast was not utilized. Comparison: Prior head CT exam of 04/21/16. Findings: Small hematoma is noted within the frontal scalp. Ventricles along with basal cisterns and sulci over the convexities are within normal limits for the patient's age. No abnormal parenchymal densities are seen. No evidence of intracranial hemorrhage. No midline shift or mass effect is seen. Bone window settings were reviewed which shows no acute calvarial abnormality. Visualized sinuses are clear. Impression: 1. Small scalp hematoma within the frontal region. 2. No acute intracranial abnormality is identified. Diagnostic code #2
--- NOTE | 2018-04-03 19:05 | CT ---
CT cervical spine Technique: Multiple axial sections were obtained from above C1 inferiorly to the bottom of T1. Reconstructed sagittal and coronal images were reviewed. Comparison: Prior CT cervical spine study of 04/21/16. Findings: Mild loss of details due to photon attenuation from the patient's body habitus. Anterior osteophytes are noted at C4-C5, C5-C6 and C6-C7. Posterior osteophytes are noted at C7-T1. Vertebral body heights are maintained. Mild diffuse disc space narrowing is seen. Degenerative change is noted between the dens and anterior arch of C1. No fracture is identified. Neural foramina are felt to be fairly well patent. No abnormal subluxation is seen. Impression: 1. Degenerative change as noted above. Nothing acute is appreciated on CT study of the cervical spine. No significant interval change is seen from previous CT cervical spine study. Diagnostic code #2
== END 2018-04-03 21:00 | disposition home or self-care (01) ==
LOC: JD.ED 16:44
DX: S00.93XA Contusion of unspecified part of head, initial encounter (principal); S10.93XA Contusion of unspecified part of neck, initial encounter; S30.1XXA Contusion of abdominal wall, initial encounter; S20.211A Contusion of right front wall of thorax, initial encounter; I10 Essential (primary) hypertension; E66.9 Obesity, unspecified; Z91.011 Allergy to milk products; Z91.041 Radiographic dye allergy status; Z88.1 Allergy status to other antibiotic agents; Z79.899 Other long term (current) drug therapy; Y04.8XXA Assault by other bodily force, initial encounter
CPT/HCPCS: 36415; 70450; 71250; 72125; 74176; 80053; 81001; 83690; 85007; 85027; 96372; 99284; J2060; J3010

== ENCOUNTER 2018-05-16 09:50 | Emergency (ER) | payer MEDICAID ==
[2018-05-16 10:00] VITALS: BP 124/85
[2018-05-16] MEDS ORDERED: Promethazine 25 MG/ML SDV IM ONE (10:14)
[2018-05-16] MEDS ORDERED: HYDROmorphone 1 MG/ML Syringe IM ONE (10:14)
--- NOTE | 2018-05-16 10:19 | EDM.PDOC ---
ED HPI GENERAL MEDICAL PROBLEM - General Chief Complaint: Upper Extremity Injury/Pain Stated Complaint: L SHOULDER/ARM PAIN Time Seen by Provider: 05/16/18 10:18 Source of Information: Reports: Patient, Family (daughter) History Limitations: Reports: No Limitations - History of Present Illness INITIAL COMMENTS - FREE TEXT/NARRATIVE: 53-year-old female of -[place] ancestry presents to the ED complaining of severe pain in her left shoulder that radiates down the arm towards her hand. She also has pain throughout the base of Versed left side of her neck rating into the superior aspect of the trapezius muscle. No fall or known injuries. Complaining also of severe left knee pain. She has [id number] in the left knee and from osteophytic changes and Dr. Kimball is doing Synvisc and I believe some steroid injections intermittently to her left knee. She has no falls or injuries to her cervical spine. By history she has osteo-arthritic changes in her lumbar spine hips knees and likely the cervical spine. Chief complaint is pain. Onset: Sudden Onset Date: 05/15/18 (Guarded last night and progressed in intensity and severity over today.) Duration: Hour(s):, Constant, Getting Worse Location: Reports: Neck, Upper Extremity, Left (Left shoulder arm), Lower Extremity, Left ( and upper belly of the trapezius muscle on the left side.has chronic pain in the left knee. Due to arthritic changes ) Quality: Reports: Ache, Sharp, Stabbing, Throbbing Severity: Moderate Improves with: Reports: Rest (Much worse with movement.) Worsens with: Reports: Movement Context: Denies: Activity, Exercise, Lifting, Sick Contact, Trauma, Other Associated Symptoms: Denies: Confusion, Chest Pain, Cough, cough w sputum, Diaphoresis, Fever/Chills, Headaches, Loss of Appetite, Shortness of Breath, Syncope Treatments COUNTER STACKER: Reports: Acetaminophen, NSAIDS Left Shoulder Pain Score (Numeric/FACES): 10 - Related Data Allergies Allergy/AdvReac Type Severity Reaction Status Date / Time amoxicillin Allergy Itching Verified 05/16/18 10:00 cephalexin monohydrate Allergy Hives Verified 05/16/18 10:00 [From Keflex] lactose AdvReac Nausea and Verified 05/16/18 10:00 Vomiting IV contrast Allergy Itching Uncoded 04/03/18 16:49 Home Meds: Home Meds ClonazePAM [KlonoPIN] 1 mg PO DAILY 02/28/17 [History] DULoxetine [Cymbalta] 60 mg PO DAILY 02/28/17 [History] Dicyclomine HCl [Bentyl] 10 mg PO DAILY 02/28/17 [History] Fluticasone/Salmeterol [Advair 250-50 Diskus] 1 puff INH ASDIRECTED 02/28/17 [ History] Furosemide [Lasix] 20 mg PO DAILY 02/28/17 [History] Gabapentin [Neurontin] 100 mg PO DAILY 02/28/17 [History] Lidocaine 5% [Lidoderm 5%] 1 patch TRDERM ASDIRECTED 02/28/17 [History] Orphenadrine [Norflex] 100 mg PO DAILY 02/28/17 [History] Oxybutynin 5 mg PO DAILY 02/28/17 [History] Pantoprazole Sodium [Protonix] 40 mg PO DAILY 02/28/17 [History] Albuterol [Ventolin HFA] 8 gm INH Q6HR PRN #1 inhaler 12/31/17 [Rx] predniSONE [Prednisone] 20 mg PO DAILY 5 Days #5 tablet 12/31/17 [Rx] Lidocaine 2% [Xylocaine 2% Viscous] 15 ml PO ASDIRECTED PRN #5 cup 01/17/18 [Rx] Naproxen [Naprosyn] 500 mg PO BID PRN #20 tablet 01/17/18 [Rx] Diclofenac Sodium [Voltaren] 50 mg PO TID #30 tab.ec 05/16/18 [Rx] oxyCODONE HCl/Acetaminophen [Percocet 5-325 mg Tablet] 1 - 2 each PO Q4H PRN # 20 tablet 05/16/18 [Rx] predniSONE [Deltasone] 20 mg PO ASDIRECTED #15 tablet 05/16/18 [Rx] Past Medical History HEENT History: Reports: Impaired Vision Cardiovascular History: Reports: Heart Murmur, Hypertension Other Cardiovascular History: irregular HR Respiratory History: Reports: Asthma, Sleep Apnea Gastrointestinal History: Reports: GERD, Hemorrhoids [employer] History: Reports: Other Musculoskeletal History: back pain, neck pain Neurological History: Reports: Other (See Below) Other Neuro History: chronic back pain Psychiatric History: Reports: Anxiety, Depression Endocrine/Metabolic History: Reports: Obesity/BMI 30+ - Past Surgical History HEENT Surgical History: Reports: Other (See Below) Other HEENT Surgeries/Procedures: removal saliva gland, jaw surgery Female Surgical History: Reports: Section Musculoskeletal Surgical History: Reports: Other (See Below) Other Musculoskeletal Surgeries/Procedures:: Jaw surgery Social & Family History - Family History Family Medical History: Noncontributory Cardiac: Reports: Hypertension, Other (See Below) Other Cardiac Family History: cardiomegaly Oncologic: Reports: Other (See Below) Other Oncologic Family History: throat - Tobacco Use Smoking Status *Q: Never Smoker - Caffeine Use Caffeine Use: Reports: Coffee, Soda - Recreational Drug Use Recreational Drug Use: No - Living Situation & Occupation 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 Denies: Chest Pain, Edema, Irregular Heart Rate, Syncope, Other GI/Abdominal: Reports: Other (Obesity) Genitourinary: Reports: Incontinence (Stress-induced) Musculoskeletal: Reports: Neck Pain ( early left shoulder pain pain ), Shoulder Pain ( Chronic low back pain), Back Pain, Joint Pain (Primarily left knee due to [id number] osteoarthritic changes.) Skin: Reports: No Symptoms Neurological: Reports: Paresthesia (Left upper extremity from the shoulder down. ) Psychiatric: Reports: Anxiety ED EXAM, GENERAL - Physical Exam Exam: See Below Exam Limited By: No Limitations General Appearance: Alert, Anxious, Moderate Distress, Other (For a histrionic and dramatic.) Eye Exam: Bilateral Eye: Normal Inspection Throat/Mouth: Normal Inspection, Normal Lips, Normal Oropharynx Head: Atraumatic, Normocephalic Neck: Tender Lateral (A tender left lateral neck particularly C5 C6 C7 facet joints.), Other (MS throughout the superior belly of the trapezius muscle and supraspinatus tendon distribution. Stressing her neck with axial traction and compression does not seem to cause radiculopathy into the left upper extremity) Respiratory/Chest: No Respiratory Distress, Lungs Clear, Normal Breath Sounds, No Accessory Muscle Use Cardiovascular: Normal Peripheral Pulses, Regular Rate, Rhythm, No Murmur, No Rub Peripheral Pulses: 2+: Brachial (L), Brachial (R) Extremities: Other (Examination of the left shoulder shows pain everywhere. Pain particularly over compression of the coracoid process pain and is distribution of both the long head and short head of the biceps tendon pain at the insertion of the deltoid tendon and very limited ability to abduct or forward flex due to limitations by pain. Clinically she has tendinitis throughout the shoulder. Good pulses to the wrist. No pronation supination at the elbow is normal. In regards to the left knee there is no true effusion of the knee. The knee is slightly warm to palpation along the joint space. Any movement of the knee causes increased pain.) Neurological: Alert ( Particular a painful in the popliteal fossa with no palpable Chin's cyst.), Oriented, CN II-XII Intact, Normal Cognition Psychiatric: Anxious, Other Skin Exam: Warm (Histrionic personality), Dry, Intact, Normal Color, No Rash Course - Vital Signs Last Recorded V/S: Last Vital Signs Temp 36.6 C 05/16/18 09:57 Pulse 83 05/16/18 09:57 Resp 16 05/16/18 09:57 BP 124/85 05/16/18 09:57 Pulse Ox 99 05/16/18 09:57 - Orders/Labs/Meds Meds: Medications Discontinued Medications Generic Name Dose Route Start Last Admin Trade Name Freq PRN Reason Stop Dose Admin Hydromorphone HCl 1 mg 05/16/18 10:14 05/16/18 10:33 Dilaudid IM 05/16/18 10:15 1 mg ONETIME ONE Administration Promethazine HCl 25 mg 05/16/18 10:14 05/16/18 10:33 Phenergan IM 05/16/18 10:15 25 mg ONETIME ONE Administration - Radiology Interpretation Free Text/Narrative:: 53-year-old female presents to the ED with severe pain in left shoulder which appears to be coming from multiple sites. There is pain on compression of the coracoid process the short and long head of biceps insertion the deltoid insertion and the trapezius supraspinatus musculature of the left upper neck. Also pain along the left lateral neck. Clinically not convinced that she has any nerve root entrapment from cervical disc. Appears to be tendinitis throughout the shoulder. Left knee already has confirmed osteoarthritis with [id number] and is likely the cause of the pain. X-rays of the knee have been done recently and therefore will not be repeated. Plan I am injection of Dilaudid 1 mg with Phenergan 25 mg IM. X-ray of the left shoulder to be obtained. - Re-Assessments/Exams Free Text/Narrative Re-Assessment/Exam: 05/16/18 11:30 x-rays of the left shoulder reveal degenerative changes with some osteophyte formation on the glenoid fossa inferiorly. Is also a hook or spur off the inferior portion of the acromion process There is also an increased space between the acromial humeral head suggesting rotator cuff disease. Oceans of visualized her cervical spine revealed very minimal degenerative arthritic changes. Landed I will place her on Voltaren 50 mg 3 times jeffrey in an effort to reduce inflammation for the next 10 days. Percocet tabs 07/31/24 one or 2 tablets every 4-6 hours lesser for pain relief 20 tabs. Prednisone 20 mg twice daily for 5 days and then once the morning for another 5 days which should alleviate some of her knee pain as well as her shoulder and neck pain. Departure - Departure Time of Disposition: 11:35 Disposition: Home, Self-Care 01 Condition: Fair Clinical Impression: Tendinitis of left rotator cuff Osteoarthritis of left knee Qualifiers: Osteoarthritis type: primary Qualified Code(s): M17.12 - Unilateral primary osteoarthritis, left knee Osteoarthritis of left shoulder Qualifiers: Osteoarthritis type: primary Qualified Code(s): M19.012 - Primary osteoarthritis, left shoulder - Discharge Information *PRESCRIPTION DRUG MONITORING PROGRAM REVIEWED*: Not Applicable *COPY OF PRESCRIPTION DRUG MONITORING REPORT IN PATIENT ERNESTO: Not Applicable Prescriptions: Diclofenac Sodium [Voltaren] 50 mg PO TID #30 tab.ec oxyCODONE HCl/Acetaminophen [Percocet 5-325 mg Tablet] 1 - 2 each PO Q4H PRN # 20 tablet PRN Reason: pain relief. predniSONE [Deltasone] 20 mg PO ASDIRECTED #15 tablet Instructions: Pain Medicine Instructions, [id number], Tendinitis, Easy-to- Read Referrals: PCP,None [Primary Care Provider] - Forms: ED Department Discharge Additional Instructions: Evaluation the emergency room today in regards to fairly sudden onset of severe pain left shoulder and aggravation of pain in left knee. Chronic left knee pain due to osteoarthritic changes are appreciated with frequent injections by Dr. Kimball for this. In regards to the left shoulder you have pain coming from multiple sites particularly the coracoid process where the tendons insert as well as the biceps tendons and the deltoid tendon in the left shoulder as well. There also appears to be inflammation of the supraspinatus tendon which travels from her neck to across the top of your shoulder on the left side. X-rays of the left shoulder do reveal some degenerative arthritic changes with some spurring off of the glenoid fossa and also evidence of widening of the joint suggestive of underlying rotator cuff disease. Treatment at this time is a sling to support the arm for the next 3-5 days and then hopefully pain will be better and you can take it out of the sling. Decision is to be Voltaren 50 mg 3 times daily for the next 10 days to relieve pain and inflammation. It takes about a day and a half to start to work. Deltasone 20 mg twice daily with breakfast and supper usually for 5 days then once in the morning only for another 5 days to relieve inflammation and pain. Percocet tablets 5/325 mg one or 2 every 6 hours necessary for pain relief. Suggest follow-up with orthopedic surgeon or your personal doctor on Friday of this following week.
--- NOTE | 2018-05-16 15:25 | CR ---
Left shoulder: Three views of the left shoulder were obtained. Comparison: No prior shoulder study. Joint space narrowing is seen within the acromioclavicular joint with mild inferior spurring. Inferior hook is identified off the acromion process. Glenohumeral joint appears within normal limits. No fracture or dislocation is seen. Impression: 1. Degenerative change within the acromioclavicular joint as well as inferior hook off the acromion process. 2. Left shoulder study is otherwise unremarkable. Diagnostic code #2
== END 2018-05-16 11:52 | disposition home or self-care (01) ==
LOC: JD.ED 09:50
DX: M19.012 Primary osteoarthritis, left shoulder (principal); M17.12 Unilateral primary osteoarthritis, left knee; I10 Essential (primary) hypertension; F32.9 Major depressive disorder, single episode, unspecified; Z88.1 Allergy status to other antibiotic agents; Z79.899 Other long term (current) drug therapy; Z91.041 Radiographic dye allergy status
CPT/HCPCS: 73030; 96372; 99283; J1170; J2550